=== PATIENT | male | born 1995 | race Two or more races ===

== ENCOUNTER 2025-08-31 12:04 | Inpatient (IN) | payer MEDICAID, OTHER ==
[~2025-08-31] VITALS: Ht 162.6 cm; Wt 63.8 kg
[2025-08-31] MEDS: InsuLIN REG 1unit/0.01ml Soln (100units/ml) IV ONE (12:30)
--- NOTE | 2025-08-31 12:34 | ED.PDOC ---
History of Present Illness HPI Comments 30 y/o M, with no prior medical history presents to the ED for CC of hyperglycemia. Patient states, he has been experiencing symptoms of excessive thirst, chills, frequency, and dizziness x1week. Patient relays, that he has perviously never seeked medical attention for symptoms and is unsure if he has any current medical conditions. Upon arrival patient is hypertensive with a blood pressure of 175/108 mmHg and is hyperglycemic blood sugar read at 485. Patient denies blurred vision, nausea, or vomiting. No other symptoms or modifying factors are present at this time. Chief Complaint: Hyperglycemia Time Seen by MD: 12:15 Reviewed Notes: Nurses Notes, Medications, Allergies Allergies: Coded Allergies: NO KNOWN ALLERGIES (Unverified , 08/31/25) Information Source: Patient Mode of Arrival: Ambulatory Severity: Moderate Timing: Weeks Duration: Since onset Prehospital treatment: None Past Medical History PAST MEDICAL HISTORY: Denies Surgical History: Denies all surgeries Family History Family History: Unknown Social History Smoker: Non-Smoker Alcohol: Denies ETOH Use Drugs: Denies Drug Use Lives In: Home Constitutional: reports: chills; denies: diaphoresis, fatigue, fever, malaise, sweats, weakness, others EENTM: denies: blurred vision, double vision, ear bleeding, ear discharge, ear drainage, ear pain, ear ringing, eye pain, eye redness, hearing loss, mouth pain, mouth swelling, nasal discharge, nose bleeding, nose congestion, nose pain, photophobia, tearing, throat pain, throat swelling, voice changes, others Respiratory: denies: cough, hemoptysis, orthopnea, SOB at rest, shortness of breath, SOB with excertion, stridor, wheezing, others Cardiovascular: denies: chest pain, dizzy spells, diaphoresis, Dyspnea on exertion, edema, irregular heart beat, left arm pain, lightheadedness, palpitations, PND, syncope, others Gastrointestinal: denies: abdomen distended, abdominal pain, blood streaked bowels, constipated, diarrhea, dysphagia, difficulty swallowing, hematemesis, melena, nausea, poor appetite, poor fluid intake, rectal bleeding, rectal pain, vomiting, others Genitourinary: reports: frequency; denies: burning, dysuria, flank pain, hematuria, incontinence, penile discharge, penile sore, pain, testicle pain, testicle swelling, urgency, others Neurological: reports: dizziness; denies: fainting, headache, left sided numbness, left sided weakness, numbness, paresthesia, pre-existing deficit, right sided numbness, right sided weakness, seizure, speech problems, tingling, tremors, weakness, others Musculoskeletal: denies: back pain, gout, joint pain, joint swelling, muscle pain, muscle stiffness, neck pain, others Integumetry: denies: bruises, change in color, change in hair/nails, dryness, laceration, lesions, lumps, rash, wounds, others Hematologic/Lymphatic: denies: anemia, blood clots, easy bleeding, easy bruising, swollen glands, others Endocrine: reports: excessive thirst; denies: excessive hunger, excessive sweating, excessive urination, flushing, intolerance to cold, intolerance to heat, unexplained weight gain, unexplained weight loss, others Psychiatric: denies: anxiety, bipolar disorder, depression, hopeless, panic disorder, schizophrenia, sleepless, suicidal, others All Other Systems: Reviewed and Negative Physical Exam General Appearance: Mild Distress HEENT: Normal ENT Inspection, Pharynx Normal, TMs Normal Neck: Full Range of Motion, Non-Tender, Normal, Normal Inspection Respiratory: Chest Non-Tender, Lungs Clear, No Accessory Muscle Use, No Respira tory Distress, Normal Breath Sounds Cardiovascular: No Edema, No JVD, No Murmur, No Gallop, Normal Peripheral Pulses, Regular Rate/Rhythm Breast Exam: Deferred Gastrointestinal: No Organomegaly, Non Tender, No Pulsatile Mass, Normal Bowel Sounds, Soft Genitalia: Deferred Pelvic: Deferred Rectal: Deferred Extremities: No calf tenderness, Normal capillary refill, Normal inspection, Normal range of motion, Non-tender, No pedal edema Musculoskeletal : Apperance: Normal Neurologic: Alert, silicator II-XII nml as Tested, Motor Weakness, Normal Affect, Normal Mood, No Sensory Deficits Cerebellar Function: Normal Reflexes: Normal Skin: Dry, Normal Color, Warm Lymphatic: No Adenopathy Was a procedure done? Was a procedure done?: No Differential Dx Considerations may include: hypertensive crisis, hypertensive urgency, hyperglycemia, uncontrolled diabetes X-Ray, Labs, Meds, VS Vital Signs Date Time Temp Pulse Resp B/P (MAP) Pulse Ox O2 Delivery O2 Flow Rate FiO2 08/31/25 12:07 98.5 119 18 175/108 99 98.5 Lab Test 08/31/25 13:01 08/31/25 12:47 08/31/25 12:15 Range/Units Urine Color Colorless Yellow Urine Clarity Clear Clear Urine pH 6.0 5.0-9.0 Urine Specific [place] 1.035 1.001-1.035 Urine Protein Negative Negative Urine Ketones 2+ H Negative Urine Blood Negative Negative /uL Urine Nitrite Negative Negative Urine Bilirubin Negative Negative Urine Urobilinogen Normal Negative mg/dL Urine Leukocyte Esterase Negative Negative /uL Urine RBC None seen 0 - 3 /hpf Urine Microscopic WBC < 1 0-3 /HPF Urine Squamous Epithelial Cells Few <5 /hpf Urine Bacteria None seen None Seen /hpf Urine Glucose 4+ H Normal mg/dL White Blood Count 6.6 4.4-10.8 10^3/uL Red Blood Count 5.83 4.5-5.90 10^6/uL Hemoglobin 17.5 13.5-17.5 g/dL Hematocrit 50.1 41.0-53.0 % Mean Corpuscular Volume 85.8 80.0-100.0 fL Mean Corpuscular Hemoglobin 30.0 28.0-32.0 pg Mean Corpuscular Hemoglobin Concent 34.9 32.0-36.0 g/dL Red Cell Distribution Width 13.0 11.8-14.3 % Platelet Count 250 140-450 10^3/uL Mean Platelet Volume 8.3 6.9-10.8 fL Neutrophils (%) (Auto) 67.4 37.0-80.0 % Lymphocytes (%) (Auto) 26.9 10.0-50.0 % Monocytes (%) (Auto) 5.0 0.0-12.0 % Eosinophils (%) (Auto) 0.5 0.0-7.0 % Basophils (%) (Auto) 0.2 0.0-2.0 % Neutrophils # (Auto) 4.5 1.6-8.6 10 ^3/uL Lymphocytes # (Auto) 1.8 0.4-5.4 10 ^3/uL Monocytes # (Auto) 0.3 0-1.3 10 ^3/uL Eosinophils # (Auto) 0 0-0.8 10 ^3/uL Basophils # (Auto) 0 0-0.2 10 ^3/uL Nucleated Red Blood Cells 0.1 % Sodium Level 138 136-145 mmol/L Potassium Level 4.2 3.5-5.1 mmol/L Chloride Level 99 98-107 mmol/L Carbon Dioxide Level 28 20-31 mmol/L Anion Gap 11 5-15 Blood Urea Nitrogen 14 9-23 mg/dL Creatinine 1.16 0.700-1.30 mg/dL Glomerular Filtration Rate Calc 86 >90 mL/min BUN/Creatinine Ratio 12.1 10.0-20.0 Serum Glucose 488 *H 74-106 mg/dL Calcium Level 9.8 8.7-10.4 mg/dL POC Glucose 485 *H 70-106 mg/dl Current Medications Medications (Trade) Dose Ordered Sig/Sophy Route Start Time Stop Time Status Last Admin Sodium Chloride 1,000 ml @ 1,000 mls/hr Q1H ONCE IV 08/31/25 12:30 08/31/25 13:29 DC 08/31/25 13:09 Insulin Human Regular (InsuLIN R) 5 units ONCE ONCE IV 08/31/25 12:30 08/31/25 12:31 DC 08/31/25 12:30 IV Hep-Lock was established The patient was given a 1 L bolus of normal saline The patient was given insulin 5 units IV push for the serum glucose at 488 The rest of the chemistry panel in the CBC is within normal limits. The urine test is negative for any infection the 4+ glucose The patient is being admitted with a diagnosis of new onset diabetes Time of 1ST Reevaluation: 12:45 Reevaluation 1ST: Unchanged Patient Education/Counseling: Diagnosis, Treatment, Prognosis Family Education/Counseling: No Family Present SEPSIS Sepsis Screen Date sepsis recognized/suspect: Aug 31, 2025 Time Sepsis recognized/suspect: 1207 Recent Procedure: No On Antibiotic Therapy: No Respiratory Rate >20: No Heart Rate >90: Yes Temp<36 C (96.8 F) or >38.3 C: No SBP <90 or MAP <65 mmHG: No New Acute Mental Status Change: No Is the patient on CPAP, BIPAP,: No Physician Orders Heplock Iv (08/31/25 12:16) Industrial Designer (08/31/25 12:16) Blood Pressure (08/31/25 12:16) Pulse Oximetry (08/31/25 12:16) Vital Signs Date Time Temp Pulse Resp B/P (MAP) Pulse Ox O2 Delivery O2 Flow Rate FiO2 08/31/25 12:07 98.5 119 18 175/108 99 98.5 Laboratory Tests Test 08/31/25 12:47 White Blood Count 6.6 10^3/uL (4.4-10.8) Medications Medications Dose Ordered Sig/Sophy Route Start Time Stop Time Status Last Admin Dose Admin Insulin Human Regular 5 units ONCE ONCE IV 08/31/25 12:30 08/31/25 12:31 DC 08/31/25 12:30 Sodium Chloride 1,000 ml @ 1,000 mls/hr Q1H ONCE IV 08/31/25 12:30 08/31/25 13:29 DC 08/31/25 13:09 Departure 1 Departure Time of Disposition: 15:21 Impression: Primary Impression: Diabetes mellitus, new onset Disposition: ADMITTED INPATIENT Admit to: Med Surg Condition: Fair Critical Care Note Critical Care Time?: No Stability Stability form required: Yes Unstable for transfer: ED Physician Assesment (Clinical assesment) Heart Score Heart Score: Heart Score Response (Comments) Value History N/A 0 EKG N/A 0 Age N/A 0 Risk Factors N/A 0 Troponin N/A 0 Total 0 I personally scribed for RAYMOND GILLIS MD ([email or web address]) on 08/31/25 at 12:34. Electronically submitted by Tiffanie Chow ([email or web address]). RAYMOND GILLIS MD Aug 31, 2025 12:34
[2025-08-31] MEDS: SODIUM CHLORIDE 0.9% 1,000 ML IV ONE (13:09)
[2025-08-31 13:10] LABS: Hematocrit 50.1 % (41.0-53.0); Hemoglobin 17.5 g/dL (13.5-17.5); Mean Corpuscular Hemoglobin 30.0 pg (28.0-32.0); Mean Corpuscular Volume 85.8 fL (80.0-100.0); Nucleated Red Blood Cells % 0.1 %
[2025-08-31 13:15] LABS: Chloride 99 mmol/L (98-107); Potassium 4.2 mmol/L (3.5-5.1); Sodium 138 mmol/L (136-145)
[2025-08-31 13:16] LABS: Anion Gap 11 (5-15); Calcium 9.8 mg/dL (8.7-10.4); Carbon Dioxide 28 mmol/L (20-31)
[2025-08-31 13:21] LABS: BUN/Creatinine Ratio 12.1 (10.0-20.0); Blood Urea Nitrogen 14 mg/dL (9-23)
[2025-08-31 13:25] LABS: Glucose 488 mg/dL (74-106)
[2025-08-31 14:12] LABS: Urine Protein, UAD Negative (Negative)
[2025-08-31] MEDS ORDERED: ONDANSETRON HCL 4 MG/2 ML VIAL IV PRN (16:00)
[2025-08-31] MEDS ORDERED: ACETAMINOPHEN 325 MG TAB PO PRN (16:00)
[2025-08-31] MEDS ORDERED: DEXTROSE (50%) 50ML SYRG IV PRN (16:00)
[2025-08-31 16:45] VITALS: BP 141/99; PULSE 106; RESP 17; TEMP 98.6; O2SAT 98
[2025-08-31] MEDS: ACCU-CHEK COMFORT CURVE STRIP VI SCH (16:57)
[2025-08-31 17:00] VITALS: BP 141/77; PULSE 79; RESP 20; TEMP 98.3; O2SAT 94
[2025-08-31] MEDS: InsuLIN REG 1unit/0.01ml Soln (100units/ml) SC SCH (17:03)
[2025-08-31] MEDS: METOPROLOL TARTRATE 25 MG TAB PO ONE (17:03)
--- NOTE | 2025-08-31 17:16 | DVHHP2 ---
History of Present Illness Reason for Visit: HYPERGLYCEMIA History of Present Illness 30-year-old male presents for evaluation of hyperglycemia. Patient reports a one-week history of associated weakness with dizziness, thirst and increased urination. Patient reports living at a halfway. He reports checking his blood sugar today and it was reading greater than 500. Denies cardiac or respiratory complaints Past Medical History Denies Past Surgical History Denies Family History Noncontributory Smoke: No ALCOHOL: none Drugs: None Lives: Other Review of Systems Review of Systems Review of systems are currently negative otherwise addressed in HPI. Allergies: Coded Allergies: NO KNOWN ALLERGIES (Unverified , 08/31/25) Medications Current Medications Medications Dose Ordered Sig/Sophy Route Start Time Stop Time Status Last Admin Dose Admin Metformin HCl 500 mg BIDWM PO 08/31/25 18:00 Diagnostic Test (Pha) 1 strip ACHS 08/31/25 17:00 08/31/25 16:57 1 STRIP Insulin Human Regular ACHS SC 08/31/25 17:00 08/31/25 17:03 8 UNITS Dextrose 50 ml UD PRN IV 08/31/25 16:00 Ondansetron HCl 4 mg Q4HP PRN IV 08/31/25 16:00 Acetaminophen 650 mg Q6HP PRN PO 08/31/25 16:00 Exam Vital Signs Vital Signs Date Time Temp Pulse Resp B/P (MAP) Pulse Ox O2 Delivery O2 Flow Rate FiO2 08/31/25 17:03 100 141/99 08/31/25 16:45 98.6 17 98 98.6 08/31/25 16:24 Room Air* 0 21 Exam Gen: 30-year-old male in no apparent distress. Skin: Warm, dry, normal color and texture, no rash. HEENT: Normocephalic atraumatic, mucous membranes moist and pink. Neck: Cervical and supraclavicular nodes normal without enlargement, trachea is midline, thyroid gland is normal without masses. Pulmonary: Clear to auscultation and percussion bilaterally. Cardiac: Sinus tachycardia Abdomen: Soft, nontender, nondistended, bowel sounds present all 4 quadrants, no guarding, no rigidity, no organomegaly. Extremities: No cyanosis, clubbing, no edema Neuro: Cranial nerves II through XII grossly intact, normal affect and speech, no focal motor deficits. Labs/Xrays Labs Test 08/31/25 16:53 08/31/25 13:01 08/31/25 12:47 Range/Units POC Glucose 308 H 70-106 mg/dl Urine Color Colorless Yellow Urine Clarity Clear Clear Urine pH 6.0 5.0-9.0 Urine Specific [place] 1.035 1.001-1.035 Urine Protein Negative Negative Urine Ketones 2+ H Negative Urine Blood Negative Negative /uL Urine Nitrite Negative Negative Urine Bilirubin Negative Negative Urine Urobilinogen Normal Negative mg/dL Urine Leukocyte Esterase Negative Negative /uL Urine RBC None seen 0 - 3 /hpf Urine Microscopic WBC < 1 0-3 /HPF Urine Squamous Epithelial Cells Few <5 /hpf Urine Bacteria None seen None Seen /hpf Urine Glucose 4+ H Normal mg/dL White Blood Count 6.6 4.4-10.8 10^3/uL Red Blood Count 5.83 4.5-5.90 10^6/uL Hemoglobin 17.5 13.5-17.5 g/dL Hematocrit 50.1 41.0-53.0 % Mean Corpuscular Volume 85.8 80.0-100.0 fL Mean Corpuscular Hemoglobin 30.0 28.0-32.0 pg Mean Corpuscular Hemoglobin Concent 34.9 32.0-36.0 g/dL Red Cell Distribution Width 13.0 11.8-14.3 % Platelet Count 250 140-450 10^3/uL Mean Platelet Volume 8.3 6.9-10.8 fL Neutrophils (%) (Auto) 67.4 37.0-80.0 % Lymphocytes (%) (Auto) 26.9 10.0-50.0 % Monocytes (%) (Auto) 5.0 0.0-12.0 % Eosinophils (%) (Auto) 0.5 0.0-7.0 % Basophils (%) (Auto) 0.2 0.0-2.0 % Neutrophils # (Auto) 4.5 1.6-8.6 10 ^3/uL Lymphocytes # (Auto) 1.8 0.4-5.4 10 ^3/uL Monocytes # (Auto) 0.3 0-1.3 10 ^3/uL Eosinophils # (Auto) 0 0-0.8 10 ^3/uL Basophils # (Auto) 0 0-0.2 10 ^3/uL Nucleated Red Blood Cells 0.1 % Sodium Level 138 136-145 mmol/L Potassium Level 4.2 3.5-5.1 mmol/L Chloride Level 99 98-107 mmol/L Carbon Dioxide Level 28 20-31 mmol/L Anion Gap 11 5-15 Blood Urea Nitrogen 14 9-23 mg/dL Creatinine 1.16 0.700-1.30 mg/dL Glomerular Filtration Rate Calc 86 >90 mL/min BUN/Creatinine Ratio 12.1 10.0-20.0 Serum Glucose 488 *H 74-106 mg/dL Hemoglobin A1c 12.2 H <5.7 % A1C Calcium Level 9.8 8.7-10.4 mg/dL SEPSIS Sepsis Screen Date sepsis recognized/suspect: Aug 31, 2025 Time Sepsis recognized/suspect: 120 Recent Procedure: No On Antibiotic Therapy: No Respiratory Rate >20: No Heart Rate >90: Yes Temp<36 C (96.8 F) or >38.3 C: No SBP <90 or MAP <65 mmHG: No New Acute Mental Status Change: No Is the patient on CPAP, BIPAP,: No Physician Orders Heplock Iv (08/31/25 12:16) Volleyball Assistant Coach (08/31/25 12:16) Blood Pressure (08/31/25 12:16) Pulse Oximetry (08/31/25 12:16) Consistent Carb(Ccho)Diabetes (08/31/25 Dinner) *Rn Instructional Support Assistant Referral (08/31/25 15:48) Basic Metabolic Panel (09/01/25 04:00) Metformin Hydrochloride (Glucophage) (08/31/25 18:00) Glucose Blood (Accu-Chek Comfort Curve T (08/31/25 17:00) Insulin R (Human) (Insulin R) (08/31/25 17:00) Dextrose 50% Syringe (08/31/25 16:00) Admit (08/31/25 15:48) Ondansetron Hcl (Zofran) (08/31/25 16:00) Condition: Stable (08/31/25 15:48) Acetaminophen Tablet (Tylenol Tablet) (08/31/25 16:00) Bedrest With Bathroom Privileg (08/31/25 15:48) Metoprolol Tartrate Tablet (Lopressor Ta (08/31/25 22:00) Thyroid Stimulating Hormone (08/31/25 17:11) Lipid Panel (08/31/25 17:11) Vital Signs Date Time Temp Pulse Resp B/P (MAP) Pulse Ox O2 Delivery O2 Flow Rate FiO2 08/31/25 17:03 100 141/99 08/31/25 16:45 98.6 106 17 141/99 (113) 98 98.6 08/31/25 16:45 98.6 106 17 141/99 (113) 98 98.6 08/31/25 16:24 97 Room Air* 0 21 08/31/25 16:23 98.7 105 17 152/96 (114) 98 98.7 08/31/25 12:07 98.5 119 18 175/108 99 98.5 Laboratory Tests Test 08/31/25 12:47 White Blood Count 6.6 10^3/uL (4.4-10.8) Medications Medications Dose Ordered Sig/Sophy Route Start Time Stop Time Status Last Admin Dose Admin Diagnostic Test (Pha) 1 strip ACHS 08/31/25 17:00 08/31/25 16:57 1 STRIP Insulin Human Regular ACHS SC 08/31/25 17:00 08/31/25 17:03 8 UNITS Insulin Human Regular 5 units ONCE ONCE IV 08/31/25 12:30 08/31/25 12:31 DC 08/31/25 12:30 5 UNITS Metoprolol Tartrate 25 mg ONCE ONCE PO 08/31/25 16:30 08/31/25 16:31 DC 08/31/25 17:03 25 MG Sodium Chloride 1,000 ml @ 1,000 mls/hr Q1H ONCE IV 08/31/25 12:30 08/31/25 13:29 DC 08/31/25 13:09 1,000 MLS/HR Assessment/Plan Assessment/Plan Assessment New onset diabetes mellitus Essential Hypertension Plan Admit the patient to [facility] to the hospitalist Start metformin Diabetic teaching Continue treatment per orders. Plan discussed with: Patient My Orders Orders - RADHA BORJAS Procedure Category Date Status Time Consistent DIET 08/31/25 Transmitted Carb(Ccho)Diabetes Dinner *Rn Instructional Support Assistant REFER 08/31/25 Transmitted Referral 15:48 Basic Metabolic Panel LAB 09/01/25 Verified 04:00 Metformin PHA 08/31/25 In Process Hydrochloride 18:00 Glucose Blood PHA 08/31/25 In Process (Accu-Chek Comfort 17:00 Insulin R (Human) PHA 08/31/25 In Process (Insulin R) 17:00 Dextrose 50% Syringe PHA 08/31/25 In Process 16:00 Admit ADMIT 08/31/25 Transmitted 15:48 Ondansetron Hcl PHA 08/31/25 In Process (Zofran) 16:00 Condition: Stable SOL 08/31/25 In Process 15:48 Acetaminophen Tablet PHA 08/31/25 In Process (Tylenol Tablet) 16:00 Bedrest With Bathroom SOL 08/31/25 In Process Privileg 15:48 Metoprolol Tartrate PHA 08/31/25 Verified Tablet (Lopressor Ta 22:00 Thyroid Stimulating LAB 08/31/25 Verified Hormone 17:11 Lipid Panel LAB 08/31/25 Verified 17:11 Date of Service: Aug 31, 2025 Billing Provider: RADHA BORJAS Common Visit Codes: [id number] INP/OBS CARE (MOD) RADHA BORJAS Aug 31, 2025 17:16
[2025-08-31 17:27] VITALS: BP 145/87; PULSE 74; RESP 16; TEMP 98.2; O2SAT 98
[2025-08-31 17:31] LABS: Cholesterol 169 mg/dL (< 200)
[2025-08-31 17:33] LABS: HDL Cholesterol 38 mg/dL (40-59); Triglycerides 291 mg/dL (< 150)
[2025-08-31] MEDS ORDERED: METOPROLOL TARTRATE 25 MG TAB PO SCH (22:00)
[2025-09-01] VITALS (8 sets, daily range): BP systolic 118–127; BP diastolic 71–86; PULSE 68–87; RESP 15–19; TEMP 97.2–99.1; O2SAT 96–99
[2025-09-01 06:32] LABS: Anion Gap 9 (5-15); Carbon Dioxide 27 mmol/L (20-31); Chloride 106 mmol/L (98-107); Potassium 3.5 mmol/L (3.5-5.1); Sodium 142 mmol/L (136-145)
[2025-09-01 06:33] LABS: Calcium 9.4 mg/dL (8.7-10.4)
[2025-09-01 06:38] LABS: BUN/Creatinine Ratio 7.5 (10.0-20.0)
[2025-09-01 06:40] LABS: Blood Urea Nitrogen 7 mg/dL (9-23); Glucose 195 mg/dL (74-106)
--- NOTE | 2025-09-01 16:12 | DVHPN2 ---
Objective Vitals Vital Signs Date Time Temp Pulse Resp B/P (MAP) Pulse Ox O2 Delivery O2 Flow Rate FiO2 09/01/25 13:00 97.2 71 17 127/82 (97) 99 97.2 09/01/25 08:00 Room Air* 0 21 Intake/Output Intake and Output 09/01/25 07:00 Intake Total 1640 ml Output Total 0 ml Balance 1640 ml Intake Oral 640 ml IV Total 1000 ml Output Urine Total 0 ml # Voids 4 Medications Current Medications Medications Dose Ordered Sig/Sophy Route Start Time Stop Time Status Last Admin Dose Admin Metformin HCl 500 mg BIDWM PO 08/31/25 18:00 09/01/25 08:20 500 MG Diagnostic Test (Pha) 1 strip ACHS 08/31/25 17:00 09/01/25 11:24 1 STRIP Insulin Human Regular ACHS SC 08/31/25 17:00 09/01/25 11:24 6 UNITS Dextrose 50 ml UD PRN IV 08/31/25 16:00 Ondansetron HCl 4 mg Q4HP PRN IV 08/31/25 16:00 Acetaminophen 650 mg Q6HP PRN PO 08/31/25 16:00 Insulin Glargine 15 units HS SC 09/01/25 22:00 Laboratory Results Laboratory Tests 08/31/25 12:47 09/01/25 05:52 Chemistry Test 09/01/25 05:52 Calcium Level 9.4 mg/dL (8.7-10.4) Urinalysis Test 08/31/25 13:01 Urine Color Colorless (Yellow) Urine Clarity Clear (Clear) Urine pH 6.0 (5.0-9.0) Urine Specific [place] 1.035 (1.001-1.035) Urine Protein Negative (Negative) Urine Ketones 2+ (Negative) H Urine Blood Negative /uL (Negative) Urine Nitrite Negative (Negative) Urine Bilirubin Negative (Negative) Urine Urobilinogen Normal mg/dL (Negative) Urine Leukocyte Esterase Negative /uL (Negative) Urine RBC None seen /hpf (0 - 3) Urine Microscopic WBC < 1 /HPF (0-3) Urine Squamous Epithelial Cells Few /hpf (<5) Urine Bacteria None seen /hpf (None Seen) Urine Glucose 4+ mg/dL (Normal) H Microbiology Microbiology Date/Time Source Procedure Growth Status 08/31/25 17:07 Nose MRSA Screen - Final Complete Assessment/Plan My Orders Orders - NATI ANNE MD Procedure Category Date Status Time Insulin Lantus PHA 09/01/25 In Process (Glargine) (Lantus) 22:00 NATI ANNE MD Sep 01, 2025 16:12
--- NOTE | 2025-09-01 16:52 | DVHPN2 ---
Subjective Overnight events noted. This is a follow up on a new onset of diabetes mellitus type 2. Changes from previous H/P or p: No Changes Objective Vitals Vital Signs Date Time Temp Pulse Resp B/P (MAP) Pulse Ox O2 Delivery O2 Flow Rate FiO2 09/01/25 13:00 97.2 71 17 127/82 (97) 99 97.2 09/01/25 08:00 Room Air* 0 21 Intake/Output Intake and Output 09/01/25 07:00 Intake Total 1640 ml Output Total 0 ml Balance 1640 ml Intake Oral 640 ml IV Total 1000 ml Output Urine Total 0 ml # Voids 4 Exam HEENT pupils are reactive Neck is supple CVS S1-S2 regular rate and rhythm Respiratory bilateral equal breath sounds GI positive bowel sound Extremity no edema SCHOOL GUARD no motor deficits Medications Current Medications Medications Dose Ordered Sig/Sophy Route Start Time Stop Time Status Last Admin Dose Admin Metformin HCl 500 mg BIDWM PO 08/31/25 18:00 09/01/25 08:20 500 MG Diagnostic Test (Pha) 1 strip ACHS 08/31/25 17:00 09/01/25 11:24 1 STRIP Insulin Human Regular ACHS SC 08/31/25 17:00 09/01/25 11:24 6 UNITS Dextrose 50 ml UD PRN IV 08/31/25 16:00 Ondansetron HCl 4 mg Q4HP PRN IV 08/31/25 16:00 Acetaminophen 650 mg Q6HP PRN PO 08/31/25 16:00 Insulin Glargine 15 units HS SC 09/01/25 22:00 Laboratory Results Laboratory Tests 08/31/25 12:47 09/01/25 05:52 Chemistry Test 09/01/25 05:52 Calcium Level 9.4 mg/dL (8.7-10.4) Urinalysis Test 08/31/25 13:01 Urine Color Colorless (Yellow) Urine Clarity Clear (Clear) Urine pH 6.0 (5.0-9.0) Urine Specific [place] 1.035 (1.001-1.035) Urine Protein Negative (Negative) Urine Ketones 2+ (Negative) H Urine Blood Negative /uL (Negative) Urine Nitrite Negative (Negative) Urine Bilirubin Negative (Negative) Urine Urobilinogen Normal mg/dL (Negative) Urine Leukocyte Esterase Negative /uL (Negative) Urine RBC None seen /hpf (0 - 3) Urine Microscopic WBC < 1 /HPF (0-3) Urine Squamous Epithelial Cells Few /hpf (<5) Urine Bacteria None seen /hpf (None Seen) Urine Glucose 4+ mg/dL (Normal) H Microbiology Microbiology Date/Time Source Procedure Growth Status 08/31/25 17:07 Nose MRSA Screen - Final Complete Assessment/Plan Assessment/Plan 30-year-old male with no significant past medical history presented to the hospital with polydipsia polyuria polyphagia found to have 1. Hyperglycemia secondary to new onset of diabetes mellitus type 2 next 2. Diabetes mellitus type 2 -add insulin Lantus, diabetic education, insulin Lantus teaching. Discharge plan. Plan discussed with: Patient My Orders Orders - NATI ANNE MD Procedure Category Date Status Time Insulin Lantus PHA 09/01/25 In Process (Glargine) (Lantus) 22:00 Date of Service: Sep 01, 2025 Billing Provider: NATI ANNE MD Common Visit Codes: [id number] INP/OBS CARE(HIGH) NATI ANNE MD Sep 01, 2025 16:52
[2025-09-01] MEDS: INSULIN LANTUS (GLARGINE) 1 /0.01ml (100units/ml) SC SCH (22:00)
[2025-09-02] VITALS (7 sets, daily range): BP systolic 110–141; BP diastolic 73–99; PULSE 64–100; RESP 16–18; TEMP 37; O2SAT 97–99
[2025-09-02] MEDS ORDERED: INSLANTI SC (15:45)
[2025-09-02] MEDS ORDERED: LANC-347 XX (15:45)
[2025-09-02] MEDS ORDERED: BLOO1KIT60 XX (15:45)
[2025-09-02] MEDS ORDERED: INSU-567 XX (15:45)
[2025-09-02] MEDS ORDERED: METF-370 PO (15:45)
[2025-09-02] MEDS ORDERED: SITA50TA PO (15:45)
--- NOTE | 2025-09-02 15:48 | DVHDS2 ---
Discharge Summary Date of Admission Aug 31, 2025 at 15:48 Date of Discharge: Sep 02, 2025 Labs/Diagnostic Data: Laboratory Results Test 09/02/25 11:10 09/01/25 05:52 08/31/25 13:01 08/31/25 12:47 POC Glucose 249 mg/dl (70-106) Sodium Level 142 mmol/L (136-145) Potassium Level 3.5 mmol/L (3.5-5.1) Chloride Level 106 mmol/L (98-107) Carbon Dioxide Level 27 mmol/L (20-31) Anion Gap 9 (5-15) Blood Urea Nitrogen 7 mg/dL (9-23) Creatinine 0.93 mg/dL (0.700-1.30) Glomerular Filtration Rate Calc 113 mL/min (>90) BUN/Creatinine Ratio 7.5 (10.0-20.0) Serum Glucose 195 mg/dL (74-106) Calcium Level 9.4 mg/dL (8.7-10.4) Urine Color Colorless (Yellow) Urine Clarity Clear (Clear) Urine pH 6.0 (5.0-9.0) Urine Specific [place] 1.035 (1.001-1.035) Urine Protein Negative (Negative) Urine Ketones 2+ (Negative) Urine Blood Negative /uL (Negative) Urine Nitrite Negative (Negative) Urine Bilirubin Negative (Negative) Urine Urobilinogen Normal mg/dL (Negative) Urine Leukocyte Esterase Negative /uL (Negative) Urine RBC None seen /hpf (0 - 3) Urine Microscopic WBC < 1 /HPF (0-3) Urine Squamous Epithelial Cells Few /hpf (<5) Urine Bacteria None seen /hpf (None Seen) Urine Glucose 4+ mg/dL (Normal) White Blood Count 6.6 10^3/uL (4.4-10.8) Red Blood Count 5.83 10^6/uL (4.5-5.90) Hemoglobin 17.5 g/dL (13.5-17.5) Hematocrit 50.1 % (41.0-53.0) Mean Corpuscular Volume 85.8 fL (80.0-100.0) Mean Corpuscular Hemoglobin 30.0 pg (28.0-32.0) Mean Corpuscular Hemoglobin Concent 34.9 g/dL (32.0-36.0) Red Cell Distribution Width 13.0 % (11.8-14.3) Platelet Count 250 10^3/uL (140-450) Mean Platelet Volume 8.3 fL (6.9-10.8) Neutrophils (%) (Auto) 67.4 % (37.0-80.0) Lymphocytes (%) (Auto) 26.9 % (10.0-50.0) Monocytes (%) (Auto) 5.0 % (0.0-12.0) Eosinophils (%) (Auto) 0.5 % (0.0-7.0) Basophils (%) (Auto) 0.2 % (0.0-2.0) Neutrophils # (Auto) 4.5 10 ^3/uL (1.6-8.6) Lymphocytes # (Auto) 1.8 10 ^3/uL (0.4-5.4) Monocytes # (Auto) 0.3 10 ^3/uL (0-1.3) Eosinophils # (Auto) 0 10 ^3/uL (0-0.8) Basophils # (Auto) 0 10 ^3/uL (0-0.2) Nucleated Red Blood Cells 0.1 % Hemoglobin A1c 12.2 % A1C (<5.7) Triglycerides Level 291 mg/dL (< 150) Cholesterol Level 169 mg/dL (< 200) LDL Cholesterol 84 mg/dL (< 100) HDL Cholesterol 38 mg/dL (40-59) Thyroid Stimulating Hormone (TSH) 1.09 uIU/mL (0.55-4.78) Other Laboratory Tests 09/01/25 05:52 08/31/25 12:47 Brief Hx & Hospital Course: 30-year-old male with no significant past medical history initially presented to hospital with increasing hunger and thirst increasing urination found to have new onset of diabetes mellitus type 2. Patient blood sugar was controlled with insulin Lantus. Patient was also started on Januvia. Patient will be given diabetic education and insulin Lantus staging and then be discharged home with close follow-up as an outpatient with PCP, endocrinology, ophthalmology. Condition at Discharge: Stable Final Diagnosis/Problems List 1. Hyperglycemia secondary to new onset of diabetes mellitus type 2 2. 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 Medications: Insulin Lantus, metformin, Januvia. New Medications: Blood Glucose Monitoring Suppl ([employer]-Care Glucometer Kit/Glu W/Device) 1 Kit Kit KIT XX, #1 Insulin Syringe/Needle U-100 ([facility] Insulin Syringe/) 0.5 Mg/31 G Mis MG XX, #30 Lancets (Freestyle Lancets) Lancets Mis BOX XX, #1 Sitagliptin Phosphate (Januvia) 50 Mg Tab 1 TAB PO DAILY, #30 TAB 5 Refills Insulin Glargine (Lantus) 100 Unit/Ml Inj 15 UNITS SC HS, #30 INJ Metformin Hydrochloride (Metformin Hcl) 500 Mg Tab 500 MG PO BIDWM, #60 TAB Scheduled Insulin Glargine (Lantus), 15 UNITS SC HS Metformin Hydrochloride (Metformin Hcl), 500 MG PO BIDWM Sitagliptin Phosphate (Januvia), 1 TAB PO DAILY Durable Medical Equipment Blood Glucose Monitoring Suppl (D-Care Glucometer Kit/Glu W/Device), KIT XX, (DME) Insulin Syringe/Needle U-100 ([facility] Insulin Syringe/), MG XX, (DME) Lancets (Freestyle Lancets), BOX XX, (DME) Discharge Statement: "Patient was advised to return to the ER or call 911 if any headaches, dizziness, shortness of breath, chest pain, abdominal pain, bleeding, fevers, or worsening of medical condition. Patient was counseled about treatment plan, medications, possible side effects, patientverbalized understanding. All questions were answered to the best of my ability. This discharge took greater then 30 minutes in planning, reviewing documentation, counseling the patient, and discussing with other team members." ASSESSMENT ASSESSMENT Assessment 1. Hyperglycemia secondary to new onset of diabetes mellitus type 2 2. Diabetes mellitus type 2 Date of Service: Sep 02, 2025 Billing Provider: NATI ANNE MD Common Visit Codes: 69499-YPU/OBS DISCH DAY >30min NATI ANNE MD Sep 02, 2025 15:48
== END 2025-09-02 17:59 | disposition home or self-care (01) | DRG 420 ==
LOC: ER 12:04 → OVERFLOW 15:48 → CENTRAL 17:31
PROVIDERS: ADMIT Internal Medicine; ATTEND Internal Medicine
DX: E11.65 Type 2 diabetes mellitus with hyperglycemia (principal); I10 Essential (primary) hypertension; R63.2 Polyphagia; Z79.4 Long term (current) use of insulin
CPT/HCPCS: 36415; 80048; 80061; 81001; 82962; 83036; 84443; 85025; 87081; 96361; 96374; G0378; J1815